=== PATIENT | male | born 1975 | race Asian ===

== ENCOUNTER 2024-05-08 20:47 | Emergency (ER) | payer MEDICARE, SELFPAY ==
[2024-05-08 20:48] VITALS: BP 130/80
[2024-05-08 23:02] VITALS: BMI 23.3
--- NOTE | 2024-05-08 23:06 | ED.GENMED ---
History of Present Illness
General
Chief Complaint: Skin Problem
Time Seen by Provider: 05/08/24 23:06
History of Present Illness
History of Present Illness:
HPI: The patient presents with a couple days of left scrotal pain. The pain is rather severe when he attempts to walk or if he tries to touch the area. He has not had fevers. He is a diabetic and takes metformin.
EXAM:
GENERAL: Well appearing in no distress
HEENT: Moist oral mucosa
CARDIOVASCULAR: No murmurs, borderline tachycardic heart rate, regular rhythm, No chest wall tenderness
ABDOMEN: Soft with no peritoneal signs, no tenderness
: There is a 1.5 cm cutaneous cystic lesion suggestive of abscess to the lateral aspect of the left scrotum that does not involve the inguinal region or the perineum, there is no testicular tenderness
NEUROLOGIC: Excellent strength all extremities, no coordination deficits
PSYCHIATRIC: Appropriate mental status, normal insight and judgement
EXTREMITIES: Nontender, no edema, moves all extremities equally
SKIN: No rash, no lesions
TIME OF INITIAL ENCOUNTER: 11:10 PM
NUMBER AND COMPLEXITY OF PROBLEMS ADDRESSED AT THE ENCOUNTER
� Chronic conditions affecting care: Diabetes
� Acute Exacerbation and/or Progression of Chronic Illness: This is an acute problem
� Differential Diagnosis includes: Cutaneous abscess, scrotal mass
AMOUNT AND/OR COMPLEXITY OF DATA TO BE REVIEWED AND ANALYZED
� I performed an independent evaluation of and my interpretation is:
EKG:
CT:
X-rays:
Laboratory Studies: Abscess culture pending
Other:
� Review of other/old records: The patient was seen in the emergency department for 17 first cellulitis
� Clinical information was obtained by an independent historian: None needed
� Prescriptions/Medications Considered but not given:
� Further testing considered but not performed:
RISK OF COMPLICATIONS AND/OR MORBIDITY OR MORTALITY OF PATIENT MANAGEMENT
� Social determinants of health affecting care: Lives at home
� Discussion with other providers: Discussed case with Dr. Romero and reviewed images of the affected area with him
� Escalation of care including admission/observation vs risk of discharge considered: I drained a very large amount of foul-smelling purulent fluid from the left side of the scrotum. Will place on doxycycline. I sent a
prescription to his pharmacy for further
Past History
Past History
ED Past Medical History: None
ED Past Surgical History: None
Social History
Tobacco: Smoker
Alcohol: Occasional
Drug: None
Personal:
Living: with family
Employment: Employed
Family History
Family History: Negative Diabetes
Phy Exam
Physical Exam
Physical Exam:
See HPI
Course
Orders/Labs/Results
Orders:
Orders
05/08/24 23:44
Doxycycline [Vibramycin] 100 mg PO NOW STA
Ibuprofen [Motrin] 600 mg PO NOW STA
05/08/24 23:46
Wound Culture [Wound/Abscess/Other Culture] Urgent
KENAN Source: Scrotum
Specimen Description:
Vital Signs
Initial and Last Documented VS:
Initial Vital Signs
Temp Pulse Resp BP Pulse Ox
98.6 F 104 24 130/80 98
05/08/24 20:48 05/08/24 20:48 05/08/24 20:48 05/08/24 20:48 05/08/24 20:48
Last Documented Vital Signs
Temp Pulse Resp BP Pulse Ox
98.6 F 104 24 130/80 98
05/08/24 20:48 05/08/24 20:48 05/08/24 20:48 05/08/24 20:48 05/08/24 20:48
Procedures
Incision/Drainage/Joint Aspiration
Left Scrotum:
Anethesia: 1% Lidocaine with Epi
Preparation: cleaned with Hibiclens
Type of procedure: incise
Nature of site: abscess
Description of abscess: less than 3cm
Loculations broken up: No
How much fluid was obtained?: large amount
Fluid description: purulent and foul smelling
Treatment: left open for drainage
*Critical Care Note
Total Time (30-74mins, 75-104mins- exclusive of procedures): Not Applicable
ED Attending Note
-
Portions of this chart may have been created with voice recognition software.� Occasional wrong word or��sound alike� substitutions may have occurred due to the inherent limitations of voice recognition software.
Discharge Plan
Departure
Patient Disposition: Home (Routine Discharge)
Date of Disposition: 05/08/24
Time of Disposition: 23:44
Patient with high blood pressure during this ER visit?: Yes
Discharge Problem:
Scrotal abscess
Prescriptions:
New
doxycycline monohydrate 100 mg tablet
100 mg PO BID Qty: 14 0RF
No Action
doxycycline hyclate 100 MG capsule
100 mg PO Q12 Qty: 20 0RF
ibuprofen 600 MG tablet
600 mg PO Q6 PRN (Reason: pain) Qty: 20 0RF
cephalexin [Keflex] 500 MG capsule
500 mg PO QID Qty: 40 0RF
Referrals:
Tyrese Romero MD [Active] - Follow up in 2-3 days
Chema Gómez MD [Family Provider] -
Activity Restrictions/Additional Instructions:
I drained a large abscess from the left side of the scrotum. I also spoke to one of the urologist bartolo. Follow-up with at least your primary care doctor or you can consider following up with urologist. I sent a prescription for doxycycline to
your pharmacy. Take Tylenol and/or Motrin for pain.
Interventions
Interventions:
*Risk Screen - Suicide Last Done: 05/08/24 20:48
*General Assessment Last Done: 05/08/24 23:02
*Neglect/Abuse Screening Last Done: 05/08/24 20:48
ED- Fall Risk Assessment Last Done: 05/08/24 23:02
*ED COVID-19 Vaccine History Last Done: 05/08/24 23:02
ED-Skin Assessment Last Done: 05/08/24 23:02
Discharge Date and Time
Print Language: NIUEAN
[2024-05-09] MEDS: MOTRIN 600 MG PO (00:03)
[2024-05-09] MEDS: VIBRAMYCIN 100 MG PO (00:03)
[2024-05-09 00:39] VITALS: BP 118/77
== END 2024-05-09 00:20 | disposition home or self-care (01) ==
LOC: EMR 20:47
PROVIDERS: EMERGENCY PHYSICIAN Emergency Medicine; FAMILY PHYSICIAN Family Medicine
DX: N49.2 Inflammatory disorders of scrotum (principal); E11.9 Type 2 diabetes mellitus without complications; Z79.84 Long term (current) use of oral hypoglycemic drugs; F17.200 Nicotine dependence, unspecified, uncomplicated
CPT/HCPCS: 99282; 54700; 87070; 87205